=== PATIENT | male | born 1955 | race Caucasian/White ===

== ENCOUNTER → 2016-05-01 | Outpatient (CLI) | payer BC ==
[2016-05-01 09:54] LABS: CHOLESTEROL/HDL RATIO 2.4
[2016-05-01 10:25] LABS: ESTIMATED AVERAGE GLUCOSE 128 mg/dl; HA1C FLAG Normal (Normal)
== END | disposition home or self-care (01) ==
LOC: C.LAB1850 08:02
PROVIDERS: ATTEND Internal Medicine
DX: E78.5 Hyperlipidemia, unspecified (principal); R73.03 Prediabetes

== ENCOUNTER → 2016-07-03 | Outpatient (CLI) | payer BC ==
[2016-07-03 12:37] LABS: BLOOD UREA NITROGEN 19 mg/dl (7-18); BUN/CREATININE RATIO 12.1 (10-20); CARBON DIOXIDE 22 mmol/L (21-32); CHLORIDE 108 mmol/L (98-107); GLUCOSE 117 mg/dl (70-99); PHOSPHORUS 3.6 mg/dl (2.5-4.9); POTASSIUM 4.4 mmol/L (3.5-5.1); SODIUM 140 mmol/L (136-145)
[2016-07-03 12:57] LABS: URINE PROTIEN/CREAT RATIO 0.1 (0-0.2)
[2016-07-03 15:02] LABS: CALCIUM 9.2 mg/dl (8.5-10.1)
== END | disposition home or self-care (01) ==
LOC: C.LAB1850 08:55
PROVIDERS: ATTEND Internal Medicine Nephrology
DX: N18.3 Chronic kidney disease, stage 3 (moderate) (principal); Z11.59 Encounter for screening for other viral diseases

== ENCOUNTER → 2017-01-03 | Outpatient (CLI) | payer BC ==
[2017-01-03 09:44] LABS: BASO % 0.3 %; BASO ABS # 0.02 K/uL (0-0.2); COMPLETE YES; EOS % 2.2 %; HEMATOCRIT 37.4 % (42-52); IG% 0.1 %; LYMPH % 19.1 %; MEAN CELL VOLUME 85.6 fL (80-100); MEAN CORPUSCULAR HEMOGLOBIN 28.6 pg (25-34); MEAN CORPUSCULAR HGB CONC 33.4 g/dl (32-36); MEAN PLATELET VOLUME 8.7 fL (7.4-10.4); MONO % 7.5 %; NEUT % 70.8 %; PLATELET COUNT 216 K/uL (130-400); RED BLOOD COUNT 4.37 M/uL (4.7-6.1); WHITE BLOOD COUNT 7.34 K/uL (4.8-10.8)
[2017-01-03 10:03] LABS: ESTIMATED AVERAGE GLUCOSE 140 mg/dl; HA1C FLAG Normal (Normal)
[2017-01-03 10:06] LABS: URINE APPEARANCE CLEAR (CLEAR); URINE BILIRUBIN NEG (NEG); URINE COLOR DK YELLOW; URINE NITRITE NEG (NEG); URINE SPECIFIC GRAVITY 1.025 (1.000-1.030); UROBILINOGEN NEG (NEG); ZZUR CULT IF INDIC CLEAN CATCH NO
[2017-01-03 10:07] LABS: PROSTATE SPECIFIC ANTIGEN 1.95 ng/ml (0.000-4.000); THYROID STIMULATING HORMONE 2.47 uIu/ml (0.300-4.500)
[2017-01-03 10:15] LABS: MANUAL MICROSCOPIC REQUIRED? NO; REVIEW REQ? NO
== END | disposition home or self-care (01) ==
LOC: C.LAB1850 07:39
PROVIDERS: ATTEND Internal Medicine
DX: N18.3 Chronic kidney disease, stage 3 (moderate) (principal); N40.0 Benign prostatic hyperplasia without lower urinary tract symptoms; R73.03 Prediabetes; E78.5 Hyperlipidemia, unspecified

== ENCOUNTER → 2017-01-09 | Outpatient (CLI) | payer BC ==
[2017-01-09 17:15] LABS: BLOOD UREA NITROGEN 19 mg/dl (7-18); BUN/CREATININE RATIO 12.3 (10-20); CALCIUM 9.6 mg/dl (8.5-10.1); CARBON DIOXIDE 25 mmol/L (21-32); CHLORIDE 107 mmol/L (98-107); CREATININE 1.58 mg/dl (0.60-1.40); GLUCOSE 87 mg/dl (70-99); POTASSIUM 4.2 mmol/L (3.5-5.1); SODIUM 138 mmol/L (136-145)
[2017-01-09 17:23] LABS: PHOSPHORUS 3.7 mg/dl (2.5-4.9); URIC ACID 8.2 mg/dl (2.6-7.2)
== END | disposition home or self-care (01) ==
LOC: C.LAB1850 15:51
PROVIDERS: ATTEND Internal Medicine
DX: M10.9 Gout, unspecified (principal); N18.3 Chronic kidney disease, stage 3 (moderate)

== ENCOUNTER → 2017-02-05 | Outpatient (CLI) | payer BC ==
[2017-02-05 15:02] LABS: SYNOVIAL FLUID APPEARANCE CLOUDY; SYNOVIAL FLUID COLOR AMBER; SYNOVIAL FLUID MONONUC RELAT 9.5 %; SYNOVIAL FLUID POLYNUC RELAT 90.5 %
== END | disposition home or self-care (01) ==
LOC: C.LAB 13:56
DX: M25.462 Effusion, left knee (principal)

== ENCOUNTER 2017-03-25 02:34 | Emergency (ER) | payer BC, OTHER ==
[~2017-03-25] VITALS: Ht 182.9 cm; Wt 107.0 kg
[2017-03-25 02:39] VITALS: TEMP 36.8; Ht 182.9 cm; Wt 107.0 kg
[2017-03-25] MEDS ORDERED: OXYMETAZOLINE HCL 0.05% NA SPR 15 ML BTL ONE (02:45)
--- NOTE | 2017-03-25 03:00 | EMERGENCY ROOM VISIT NOTE ---
History Report prepared by Rebekah: Rubén Livingston Under the Supervision of: Dr. Angelia Rogers D.O. First contact with patient: 02:45 Chief Complaint: NOSE BLEED (MAJOR) Stated Complaint: NOSE BLEED WILL NOT STOP History of Present Illness The patient is a 62 year old male who presents to the Emergency Room with complaints of a persistent nose bleed that began at 1700 this evening. 10 hours prior to arrival. The patient states that the initial bleed stopped spontaneously 1.5 hours after onset, before returning again at 2300, 4 hours ago. The patient claims that 90% of the blood was from the left nostril and 10% from the right. He admits to swallowing a lot of blood this evening. The patient had a nose bleed 1.5 months ago. He stopped taking his daily Baby Aspirin following the episode. The patient had a cauterization 25 years ago, but he cannot remember in which nostril. He has electric heat in his house and has been blowing his nose frequently. 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 A total of 10 systems reviewed and were otherwise negative. Past Medical & Surgical Medical Problems: (1) Hypertension Hypertension Family History Hypertension Social History Smoking Status: Never Smoker Marital Status: Housing Status: lives with significant other Occupation Status: employed Allergies Coded Allergies: No Known Allergies (Verified Allergy, Unknown, 12/20/04) Physical Exam Vital Signs Date Time Temp Pulse Resp B/P (MAP) Pulse Ox O2 Delivery O2 Flow Rate FiO2 03/25/17 04:43 63 20 149/82 95 03/25/17 03:34 78 20 149/88 98 Room Air 03/25/17 02:39 36.8 95 22 163/84 98 Room Air Physical Exam GENERAL: alert, well appearing, well nourished, no distress, non-toxic EYE EXAM: normal conjunctiva, PERRL and EOM's grossly intact NOSE: Bilateral naris with hyper mucosal irritation and hypemia. NO active bleeding, NO fresh clot. Blood pressure is better. OROPHARYNX: no exudate, no erythema, lips, buccal mucosa, and tongue normal and mucous membranes are moist NECK: supple, no nuchal rigidity, no adenopathy, non-tender LUNGS: Clear to auscultation. Normal chest wall mechanics HEART: no murmurs, S1 normal and S2 normal ABDOMEN: abdomen soft, non-tender, normo-active bowel sounds, no masses, no rebound or guarding. BACK: Back is symmetrical on inspection and there is no deformity, no midline tenderness, no CVA tenderness. SKIN: no rashes and no bruising UPPER EXTREMITIES: upper extremities are grossly normal. LOWER EXTREMITIES: No pitting edema. NEURO EXAM: Normal sensorium Medical Decision & Procedures Medications Administered Medications (Trade) Dose Ordered Sig/Naga Route Start Time Stop Time Status Last Admin Dose Admin Oxymetazoline HCl (Afrin 0.05% Nasal [place]) 75 sprays STK-MED ONCE .ROUTE 03/25/17 02:45 03/25/17 02:46 DC 03/25/17 02:49 75 SPRAYS ED Course 0244: The patient was evaluated in room A3. A complete history and physical exam was performed. 0245: Ordered Oxymetazoline HCl 75 sprays. 0332: I reevaluated the patient at this time to perform an examination of the naris. NO active bleeding, no clot. 0420: Upon reevaluation, the patient is feeling better. I discussed the findings and the treatment plan with the patient. He verbalizes agreement and understanding. The patient was discharged home. Medical Decision Differential diagnosis: Etiologies such as anterior epistaxis, coagulopathy, traumatic injury, fracture , septal hematoma, posterior epistaxis as well as other pathologies were entertained. Pt well appearing here and bleeding controlled without any rebleeding. Discussed humidification of air at home, saline mist daily, avoiding frequent and forceful nose blowing or any other digital trauma. Discussed f/u with ENT if recurrence. Discussed sx to watch/return for, he verbalized understanding and was agreeable with plan. Medication Reconcilliation Current Medication List: was personally reviewed by me Blood Pressure Screening Patient's blood pressure: Elevated blood pressure Blood pressure disposition: Elevated BP felt to be situational Impression Primary Impression: Epistaxis Additional Impression: Hypertension Scribe Attestation The scribe's documentation has been prepared under my direction and personally reviewed by me in its entirety. I confirm that the note above accurately reflects all work, treatment, procedures, and medical decision making performed by me. Departure Information Dispostion Home / Self-Care Referrals Cullen Heller M.D. (PCP) Patient Instructions My [facility] Additional Instructions Please do not blow your nose for at least 24 hours. Please consider getting a humidifier for your home and using a saline nasal mist frequently throughout the day. If you have another nose bleed, you may try pinching your nose while sitting up and placing an ice pack over the bridge of your nose. If this doesn' t help after 15-20 minutes, or you develop headaches, dizziness, vomiting, chest pain, notice bleeding from another site, or have any other new concerns, please return to the emergency room. Problem Qualifiers Additional Impression: Hypertension Hypertension type: essential hypertension Qualified Codes: I10 - Essential ( primary) hypertension
[2017-03-25 04:43] VITALS: BP 149/82; PULSE 63; O2SAT 95
== END 2017-03-25 04:45 | disposition home or self-care (01) ==
LOC: C.EDB 02:35 → C.EDA 04:45
DX: R04.0 Epistaxis (principal); I10 Essential (primary) hypertension; Z82.49 Family history of ischemic heart disease and other diseases of the circulatory system

== ENCOUNTER → 2017-04-04 | Outpatient (CLI) | payer OTHER | END | disposition home or self-care (01) | LOC: C.LABBFT 08:24 | PROVIDERS: ATTEND Internal Medicine | DX: M10.9 Gout, unspecified (principal) ==

== ENCOUNTER → 2017-07-09 | Outpatient (CLI) | payer OTHER ==
[2017-07-09 13:17] LABS: BASO % 0.4 %; BASO ABS # 0.02 K/uL (0-0.2); EOS % 4.2 %; EOS ABS # 0.22 K/uL (0-0.5); HEMATOCRIT 39.5 % (42-52); HEMOGLOBIN 13.4 g/dL (14.0-18.0); IG# 0.01 K/uL (0.00-0.02); LYMPH % 31.2 %; LYMPH ABS # 1.64 K/uL (1.2-3.4); MEAN CELL VOLUME 86.4 fL (80-100); MEAN CORPUSCULAR HEMOGLOBIN 29.3 pg (25-34); MEAN CORPUSCULAR HGB CONC 33.9 g/dl (32-36); MEAN PLATELET VOLUME 8.7 fL (7.4-10.4); MONO ABS # 0.58 K/uL (0.11-0.59); NEUT ABS # 2.79 K/uL (1.4-6.5); PLATELET COUNT 191 K/uL (130-400); RED CELL DISTRIBUTION WIDTH CV 14.6 % (11.5-14.5); RED CELL DISTRIBUTION WIDTH SD 46.2 fL (36.4-46.3); WHITE BLOOD COUNT 5.26 K/uL (4.8-10.8)
[2017-07-09 13:18] LABS: HEMOGLOBIN A1C 6.3 % (4.5-5.6)
[2017-07-09 13:47] LABS: ALBUMIN 4.2 gm/dl (3.4-5.0); ALT/SGPT 40 U/L (12-78); AST/SGOT 20 U/L (15-37); BLOOD UREA NITROGEN 19 mg/dl (7-18); CALCIUM 8.9 mg/dl (8.5-10.1); CARBON DIOXIDE 24 mmol/L (21-32); CHOLESTEROL 107 mg/dl (0-200); CREATININE 1.62 mg/dl (0.60-1.40); GLUCOSE 110 mg/dl (70-99); GLUCOSE,FASTING 110 mg/dl (70-99); POTASSIUM 4.2 mmol/L (3.5-5.1); SODIUM 138 mmol/L (136-145); URIC ACID 6.5 mg/dl (2.6-7.2)
[2017-07-09 13:50] LABS: LDL CHOLESTEROL CALCULATED 48 mg/dl; PHOSPHORUS 3.7 mg/dl (2.5-4.9)
== END | disposition home or self-care (01) ==
LOC: C.LAB1850 12:01
PROVIDERS: ATTEND Internal Medicine Nephrology
DX: E78.5 Hyperlipidemia, unspecified (principal); M10.9 Gout, unspecified; R73.03 Prediabetes; N18.3 Chronic kidney disease, stage 3 (moderate)